=== PATIENT | female | born 1970 | race Caucasian/White ===

== ENCOUNTER 2023-09-27 10:22 | Emergency (ER) | payer MEDICAID ==
[~2023-09-27] VITALS: Ht 177.8 cm; Wt 81.4 kg
[~2023-09-27 10:22] MED LIST: CIPR-202 PO; ZOF4T PO
[2023-09-27] MEDS ORDERED: NAPR-56 PO (11:32)
[2023-09-27 11:38] VITALS: BP 126/89; PULSE 76; RESP 16; TEMP 98.7; O2SAT 95
== END 2023-09-27 11:41 | disposition home or self-care (01) ==
LOC: ER 10:23
DX: S60.011A Contusion of right thumb without damage to nail, initial encounter (principal); F17.200 Nicotine dependence, unspecified, uncomplicated; Z79.2 Long term (current) use of antibiotics; Z79.899 Other long term (current) drug therapy; Z90.49 Acquired absence of other specified parts of digestive tract; X58.XXXA Exposure to other specified factors, initial encounter; Y93.89 Activity, other specified; Y92.89 Other specified places as the place of occurrence of the external cause; Y99.8 Other external cause status
CPT/HCPCS: 73130; 99283